=== PATIENT | male | born 1995 | race Caucasian/White ===

== ENCOUNTER 2017-01-22 17:31 | Emergency (ER) | payer OTHER | END 2017-01-22 20:00 | disposition home or self-care (01) | LOC: ER 17:31 | DX: R07.9 Chest pain, unspecified (principal); R42 Dizziness and giddiness; T40.7X5A Adverse effect of cannabis (derivatives), initial encounter; F17.200 Nicotine dependence, unspecified, uncomplicated; Z88.0 Allergy status to penicillin | CPT/HCPCS: 36415; 80307 ==